=== PATIENT | male | born 2005 | race Caucasian/White ===

== ENCOUNTER → 2023-08-27 | Outpatient (CLI) | payer MEDICAID, SELFPAY ==
[2023-08-27 17:39] LABS: HEMATOCRIT 42.5 % (42.0-52.0); HEMOGLOBIN 14.1 g/dl (13.5-17.5); MEAN CORPUSCULAR HEMOGLOBIN 29.1 pg (27.0-33.0); MEAN CORPUSCULAR HGB CONC 33.2 g/dl (32.0-36.5); MEAN CORPUSCULAR VOLUME 87.8 fl (80.0-96.0); PLATELET COUNT, AUTOMATED 371 10^3/uL (150-450); RED BLOOD COUNT 4.84 10^6/uL (4.30-6.10); WHITE BLOOD COUNT 8.4 10^3/uL (4.0-10.0)
[2023-08-27 18:10] LABS: ALBUMIN 4.1 G/DL (3.2-5.2); ALKALINE PHOSPHATASE 102 U/L (46-116); ALT/SGPT 12 U/L (7.0-40); AST/SGOT 14 U/L (<34); BILIRUBIN,DIRECT 0.2 MG/DL (<0.4); BILIRUBIN,TOTAL 0.5 MG/DL (0.3-1.2); BLOOD UREA NITROGEN 23 MG/DL (9-23); CALCIUM LEVEL 9.8 MG/DL (8.5-10.1); CARBON DIOXIDE LEVEL 27 MMOL/L (20-31); CHLORIDE LEVEL 107 MMOL/L (98-107); CHOLESTEROL LEVEL 119 MG/DL (<200); CHOLESTEROL RISK RATIO 5.72 (<5); CREATININE FOR GFR 0.91 MG/DL (0.70-1.30); GLUCOSE, FASTING 85 MG/DL (60-100); HDL CHOLESTEROL 20.8 MG/DL (>40); LDL CHOLESTEROL 79.2 MG/DL (<100); NON-HDL-C 98.2 MG/DL; POTASSIUM SERUM 4.5 MMOL/L (3.5-5.1); SODIUM LEVEL 137 MMOL/L (136-145); TOTAL PROTEIN 7.1 G/DL (5.7-8.2); TRIGLYCERIDES LEVEL 95 MG/DL (<150)
[2023-08-27 18:11] LABS: FREE T4 1.12 NG/DL (0.83-1.43)
[2023-08-27 18:12] LABS: THYROID STIMULATING HORMONE 0.188 uIU/ML (0.48-4.17)
[2023-08-27 18:17] LABS: HEPATITIS B SURFACE ANTIBODY NEGATIVE (POSITIVE)
[2023-08-27 18:21] LABS: GC DNA AMPLIFICATION NEGATIVE (NEGATIVE)
[2023-08-27 18:30] LABS: HEPATITIS B SURFACE ANTIGEN NEGATIVE (NEGATIVE)
[2023-08-27 18:42] LABS: HIV 1&2 SCREEN NEGATIVE (NEGATIVE)
[2023-08-27 18:51] LABS: HEPATITIS C VIRUS ABY INDEX < 0.02 INDEX (<0.8)
== END ==
LOC: EDBD 15:24 → M LAB 15:24
PROVIDERS: ATTEND Nurse Practitioner Family
DX: F19.10 Other psychoactive substance abuse, uncomplicated (principal)